=== PATIENT | male | born 1980 | race American Indian/Alaskan Native ===

== ENCOUNTER 2018-08-11 23:12 | Emergency (ER) | payer OTHER ==
[2018-08-12 00:28] VITALS: BP 113/72
[2018-08-12] MEDS ORDERED: ASPIRIN ONE (17:17)
== END 2018-08-12 02:45 | disposition left against medical advice (07) ==
LOC: ED 23:12
DX: R50.9 Fever, unspecified (principal); Z53.21 Procedure and treatment not carried out due to patient leaving prior to being seen by health care provider

== ENCOUNTER 2018-08-12 10:35 | Inpatient (IN) | payer OTHER ==
[2018-08-12] MEDS ORDERED: NACL 0.9% 1000 ML 1,000 ML IV ONE (11:23)
[2018-08-12] MEDS ORDERED: LEVAQUIN 750MG/150ML 750 MG/150 ML BAG IV ONE (11:40)
[2018-08-12 11:48] LABS: Basophils % (Auto) 0.2 % (0.0-1.8); Eosinophils % (Auto) 0.1 % (0.0-4.3); Hemoglobin 14.8 gm/dl (11.8-15.2); Lymphocytes # (Auto) 0.6 K/mm3 (1.2-5.4); Lymphocytes % (Auto) 6.8 % (13.4-35.0); Mean Corpuscular HGB Conc 35 % (32-34); Mean Corpuscular Volume 86 fl (84-94); Monocytes # (Auto) 0.6 K/mm3 (0.0-0.8); Monocytes % (Auto) 7.6 % (0.0-7.3); Platelet Count 152 K/mm3 (140-440); Red Blood Count 4.87 M/mm3 (3.65-5.03); Red Cell Distribution Width 12.8 % (13.2-15.2)
[2018-08-12 12:00] LABS: INR 1.04 (0.87-1.13)
[2018-08-12 12:01] LABS: Partial Thromboplastin Time 24.2 Sec. (24.2-36.6)
[2018-08-12 12:09] LABS: Alanine Aminotransferase 17 units/L (7-56); Albumin 4.1 g/dL (3.9-5); BUN/Creatinine Ratio 14; Blood Urea Nitrogen 15 mg/dL (9-20); Calcium 9.2 mg/dL (8.4-10.2); Hemolysis Index 18
[2018-08-12 12:27] LABS: Creatine Kinase MB < 1.0 ng/mL (0.0-4.0)
--- NOTE | 2018-08-12 12:32 | XRay Report ---
AP CHEST : 08/12/18 10:35:00 CLINICAL: Chest pain and fever. COMPARISON:None FINDINGS: Normal heart and pulmonary vessels. The lungs are normally expanded and clear. The bones and soft tissues are unremarkable. IMPRESSION: Normal chest.
--- NOTE | 2018-08-12 13:31 | History and Physical Report ---
History of Present Illness Chief complaint: My chest hurts, I feel weak. I just dont feel like myself History of present illness: 37 YO Male with PE not taking anticoagulation presents to ED for evaluation. Pt states that he has experienced pain in his chest over the past 3 days with persistent symptoms over the same time frame. Pt states that his pain is substernal, 5/10, worsened with exertion, not relieved with rest, associated with shortness of breath, nonradiating. Pt acknowledges subjective fever, shaking chills, muscle aches, and joint pains, as well as decreased exercise tolerance. Pt transported to [facility] via private vehicle. Pt seen and evaluated in ED and found to have fever to 101.2 , Angina, and other symptoms consistent with Diastolic CHF, and SIRS. Pt admitted to telemetry. Cardiology consulted in ED. Pt denies palpitations, NVD, Trauma, BRBPR, Skin Rash, hematuria, Vertigo, Syncope, productive cough, or recent ill contacts. Past History Past Medical History: pulmonary embolism Past Surgical History: No surgical history Social history: , lives with family. denies: smoking, alcohol abuse, p rescription drug abuse Family history: hypertension Medications and Allergies Allergies Allergy/AdvReac Type Severity Reaction Status Date / Time No Known Allergies Allergy Verified 08/11/18 23:17 Home Medications Medication Instructions Recorded Confirmed Last Taken Type No Known Home Medications [No 08/12/18 08/12/18 Unknown History Reported Home Medications] Review of Systems Constitutional: fever, chills, weakness, malaise, no weight loss, no weight gain Ears, nose, mouth and throat: no ear pain, no ear discharge, no tinnitis, no decreased hearing, no nose pain, no nasal congestion Cardiovascular: chest pain, shortness of breath, dyspnea on exertion, decreased exercise tolerance, no palpitations, no rapid/irregular heart beat, no paroxysmal nocturnal dyspnea, no claudication Respiratory: no cough, no cough with sputum, no excessive sputum, no hemoptysis Gastrointestinal: no nausea, no vomiting, no diarrhea, no constipation, no change in bowel habits Genitourinary Male: no hematuria, no flank pain, no discharge, no urinary frequency, no urinary hesitancy Rectal: no pain, no incontinence, no bleeding Musculoskeletal: no neck stiffness, no neck pain, no shooting arm pain, no arm numbness/tingling, no low back pain Integumentary: no rash, no pruritis, no redness, no sores, no wounds Neurological: no head injury, no transient paralysis, no paralysis, no weakness, no parathesias Psychiatric: no anxiety, no memory loss, no change in sleep habits, no sleep disturbances, no insomnia, no hypersomnia, no change in appetite Endocrine: no cold intolerance, no heat intolerance, no polyphagia, no excessive thirst, no polydipsia, no polyuria Hematologic/Lymphatic: no easy bruising, no easy bleeding, no lymphadenopathy, no lymphedema Allergic/Immunologic: no urticaria, no allergic rhinitis, no wheezing, no persistent infections, no anaphylaxis Exam - Constitutional Vitals: Temp Pulse Resp BP Pulse Ox 101.2 F H 114 H 18 124/73 100 08/12/18 10:53 08/12/18 10:53 08/12/18 10:53 08/12/18 10:53 08/12/18 10:53 General appearance: Present: no acute distress, well-nourished - EENT Eyes: Present: PERRL ENT: hearing intact, clear oral mucosa - Neck Neck: Present: supple, normal ROM - Respiratory Respiratory effort: normal Respiratory: bilateral: CTA - Cardiovascular Heart Sounds: Present: S1 & S2. Absent: rub, click - Extremities Extremities: pulses symmetrical, No edema Peripheral Pulses: within normal limits - Abdominal General gastrointestinal: Present: soft, non-tender, non-distended, normal bowel sounds Male genitourinary: Present: normal - Integumentary Integumentary: Present: clear, warm, dry - Musculoskeletal Musculoskeletal: gait normal, strength equal bilaterally - Psychiatric Psychiatric: appropriate mood/affect, intact judgment & insight - Neurologic Neurologic: CNII-XII intact, moves all extremities Results - Labs CBC & Chem 7: 08/12/18 11:31 08/12/18 11:31 Labs: Abnormal lab results 08/12/18 08/12/18 08/12/18 Range/Units 11:31 11:31 11:54 MCHC 35 H (32-34) % RDW 12.8 L (13.2-15.2) % Lymph % (Auto) 6.8 L (13.4-35.0) % [place] % (Auto) 7.6 H (0.0-7.3) % Lymph # 0.6 L (1.2-5.4) K/mm3 Seg Neutrophils % 85.3 H (40.0-70.0) % Chloride 97.4 L (98-107) mmol/L Glucose 109 H (75-100) mg/dL Magnesium 1.60 L (1.7-2.3) mg/dL Total Bilirubin 1.90 H (0.1-1.2) mg/dL Lipase 11 L (13-60) units/L Assessment and Plan - Patient Problems (1) Angina at rest Current Visit: Yes Status: Acute Plan to address problem: Admit to telemetry, serial cardiac enzymes, ekg, CT Angio chest, cardiology consulted in ED, Stress test, chest x ray, morphine, supplemental oxygen, nitro, aspirin. (2) Diastolic CHF Current Visit: Yes Status: Acute Qualifiers: Heart failure chronicity: acute Qualified Code(s): I50.31 - Acute diastolic (congestive) heart failure Plan to address problem: Admit to telemetry, BNP, strict I/O, daily weight, monitor uop q shift, chest x ray, Ddimer, supplemental oxygen, pulse oximetry, monitor fluid balance, echo (3) SIRS (systemic inflammatory response syndrome) Current Visit: Yes Status: Acute Plan to address problem: CBC, CMP, Chest x ray, Urinalysis, empiric antibiotic therapy, Rapid HIV, ESR, CRP, Rheumatoid Factor, Magnesium level, blood cultures (4) DVT prophylaxis Current Visit: Yes Status: Acute Plan to address problem: SCD to BLE while in bed, prophylactic lovenox
--- NOTE | 2018-08-12 13:34 | Cat Scan Report ---
CTA chest: History: Chest pain history of PE. Findings: No evidence of aneurysm or pulmonary embolism. No mediastinal mass or adenopathy. No pleural pericardial effusion. Unremarkable lung parenchyma. Impression: Essentially negative chest.
[2018-08-12 14:17] LABS: Bacteria,Urine 1+ /HPF (Negative); Bilirubin,Urine NEG (Negative); Blood,Urine NEG (Negative); Color,Urine Yellow (Yellow); Mucus,Urine FEW /HPF
[2018-08-12 14:20] LABS: Amphetamine Screen,Urine PRESUMPTIVE NEGATIVE; Benzodiazepines Screen,Urine PRESUMPTIVE NEGATIVE; Cannabinoid Screen,Urine PRESUMPTIVE NEGATIVE; Cocaine Screen,Urine PRESUMPTIVE NEGATIVE; Methadone Screen,Urine PRESUMPTIVE NEGATIVE; Opiate Screen,Urine PRESUMPTIVE NEGATIVE
[2018-08-12] MEDS ORDERED: MAGNESIUM SULFATE 2GM/50ML 2 GM/50 ML BAG IV ONE ×2 (14:21→16:52)
--- NOTE | 2018-08-12 14:23 | Emergency Department Report ---
ED Chest Pain HPI - General Chief Complaint: Chest Pain Stated Complaint: CHEST PAIN/FEVER/WEAKNESS Time Seen by Provider: 08/12/18 11:22 Source: patient Mode of arrival: Ambulatory Limitations: No Limitations - History of Present Illness Initial Comments: 37-year-old male presents to the emergency department providing a lot of historical information. He is preferring to keep the blanket that he brought from home over his head. However I am able to get some information from him. He states he's had chest pain for 3 days she has constant substernal and a lot of pleuritic. He does complain of some shortness of breath. He states he has not measured his temperature but he has felt like he's had a chill. He presented to the emergency department with fever and tachycardia. In actuality he came on 08/11/2018 which was yesterday and left without physician evaluation. Vital signs yesterday did not show the presence of fever. The patient was pr ocessed as a possible sepsis. However, he told me that in 2010 he was treated with "shots in his abdomen for one year due to a "vitamin K deficiency" and pulmonary embolism. The patient did not report DVT then. He denied recent leg swelling or pain although he has had myalgias and arthralgias diffusely. His have recently traveled. He states that the chest pain is somewhat similar to his previous home in her embolism. He states that he was continued on anticoagulation for one year and that it was discontinued by a physician. Complaint: chest pain -: days(s) Onset: during rest Pain Location: substernal Pain Radiation: none Severity: moderate, severe Quality: aching Consistency: intermittent Improves With: nothing Worsens With: inspiration re: dyspnea Other Symptoms: fever Treatments Prior to Arrival: none Aspirin use within the Past 7 Days: (0) No - Related Data Home Medications Medication Instructions Recorded Confirmed Last Taken No Known Home Medications [No 08/12/18 08/12/18 Unknown Reported Home Medications] Allergies Allergy/AdvReac Type Severity Reaction Status Date / Time No Known Allergies Allergy Verified 08/11/18 23:17 Heart Score - HEART Score History: Moderately suspicious EKG: Non-specific Age: < 45 Risk factors: 1-2 risk factors Troponin: < normal limit HEART Score: 3 - Critical Actions Critical Actions: 0-3 pts:0.9-1.7%risk of adverse cardiac event.Candidate for discharge ED Review of Systems ROS: Stated complaint: CHEST PAIN/FEVER/WEAKNESS Other details as noted in HPI Constitutional: fever. denies: chills Eyes: denies: eye pain, eye discharge, vision change ENT: denies: ear pain, throat pain Respiratory: shortness of breath. denies: cough, wheezing Cardiovascular: chest pain. denies: palpitations Endocrine: no symptoms reported Gastrointestinal: denies: abdominal pain, nausea, diarrhea Genitourinary: denies: urgency, dysuria Musculoskeletal: denies: back pain, joint swelling, arthralgia Skin: denies: rash, lesions Neurological: denies: headache, weakness, paresthesias Psychiatric: denies: anxiety, depression Hematological/Lymphatic: denies: easy bleeding, easy bruising ED Past Medical Hx - Past Medical History Hx Pulmonary Embolism: Yes - Social History Smoking Status: Unknown if ever smoked Substance Use Type: None - Medications Home Medications: Home Medications Medication Instructions Recorded Confirmed Last Taken Type No Known Home Medications [No 08/12/18 08/12/18 Unknown History Reported Home Medications] ED Physical Exam - General Limitations: No Limitations General appearance: alert, in no apparent distress - Head Head exam: Present: atraumatic, normocephalic - Eye Eye exam: Present: normal appearance. Absent: scleral icterus - ENT ENT exam: Present: mucous membranes moist - Neck Neck exam: Present: normal inspection. Absent: tenderness, meningismus - Respiratory Respiratory exam: Present: normal lung sounds bilaterally. Absent: respiratory distress - Cardiovascular Cardiovascular Exam: Present: normal rhythm, tachycardia. Absent: systolic murmur, diastolic murmur, rubs, gallop - GI/Abdominal GI/Abdominal exam: Present: soft, normal bowel sounds. Absent: distended, tenderness, guarding, rebound, rigid - Rectal Rectal exam: Present: deferred - Extremities Exam Extremities exam: Present: normal inspection. Absent: pedal edema, calf tender ness - Back Exam Back exam: Present: normal inspection - Neurological Exam Neurological exam: Present: alert, oriented X3, CN II-XII intact. Absent: motor sensory deficit - Psychiatric Psychiatric exam: Present: anxious, flat affect - Skin Skin exam: Present: warm, dry, intact, normal color. Absent: rash ED Course Vital Signs 08/12/18 10:53 Temperature 101.2 F H Pulse Rate 114 H Respiratory 18 Rate Blood Pressure 124/73 O2 Sat by Pulse 100 Oximetry - Reevaluation(s) Reevaluation #1: Chest x-ray raised a was question of a slight infiltrate on the right to the. This was not borne out on pulmonary angiography which was read as a normal chest by the radiologist. There was no pulmonary embolism. Patient was given 1 dose of Levaquin. Blood cultures were obtained. He was given IV fluids. He was improved on reevaluation. He was referred to the hospitalist service for further care and evaluation. 08/12/18 15:43 JANET score - Janet Score Age > 65: (0) No Aspirin use within the Past 7 Days: (0) No 3 or more CAD Risk Factors: (0) No 2 or more Angina events in past 24 hrs: (0) No Known CAD with more than 50% Stenosis: (0) No Elevated Cardiac Markers: (0) No ST Deviation Greater than 0.5mm: (0) No JANET Score: 0 ED Medical Decision Making - Lab Data Result diagrams: 08/12/18 11:31 08/12/18 11:31 Laboratory Results - last 24 hr 08/12/18 08/12/18 08/12/18 11:31 11:31 11:31 WBC 8.3 RBC 4.87 Hgb 14.8 Hct 42.0 MCV 86 MCH 30 MCHC 35 H RDW 12.8 L Plt Count 152 Lymph % (Auto) 6.8 L [place] % (Auto) 7.6 H Eos % (Auto) 0.1 Baso % (Auto) 0.2 Lymph # 0.6 L [place] # 0.6 Eos # 0.0 Baso # 0.0 Seg Neutrophils % 85.3 H Seg Neutrophils # 7.1 PT 14.2 INR 1.04 APTT 24.2 Sodium 139 Potassium 4.2 Chloride 97.4 L Carbon Dioxide 24 Anion Gap 22 BUN 15 Creatinine 1.1 Estimated GFR > 60 BUN/Creatinine Ratio 14 Glucose 109 H POC Glucose Lactic Acid Calcium 9.2 Magnesium Total Bilirubin 1.90 H AST 18 ALT 17 Alkaline Phosphatase 42 Total Creatine Kinase 85 CK-MB (CK-2) Troponin T < 0.010 NT-Pro-B Natriuret Pep Total Protein 7.7 Albumin 4.1 Albumin/Globulin Ratio 1.1 Lipase 11 L Urine Color Urine Turbidity Urine pH Ur Specific [place] Urine Protein Urine Glucose (UA) Urine Ketones Urine Blood Urine Nitrite Urine Bilirubin Urine Urobilinogen Ur Leukocyte Esterase Urine WBC (Auto) Urine RBC (Auto) Urine Bacteria (Auto) Urine Mucus Urine Opiates Screen Urine Methadone Screen Ur Barbiturates Screen Ur Phencyclidine Scrn Ur Amphetamines Screen U Benzodiazepines Scrn Urine Cocaine Screen U Marijuana (THC) Screen 08/12/18 08/12/18 08/12/18 11:31 11:35 11:54 WBC RBC Hgb Hct MCV MCH MCHC RDW Plt Count Lymph % (Auto) [place] % (Auto) Eos % (Auto) Baso % (Auto) Lymph # [place] # Eos # Baso # Seg Neutrophils % Seg Neutrophils # PT INR APTT Sodium Potassium Chloride Carbon Dioxide Anion Gap BUN Creatinine Estimated GFR BUN/Creatinine Ratio Glucose POC Glucose 84 Lactic Acid 1.30 Calcium Magnesium 1.60 L Total Bilirubin AST ALT Alkaline Phosphatase Total Creatine Kinase TNR CK-MB (CK-2) < 1.0 Troponin T NT-Pro-B Natriuret Pep 252.3 Total Protein Albumin Albumin/Globulin Ratio Lipase Urine Color Urine Turbidity Urine pH Ur Specific [place] Urine Protein Urine Glucose (UA) Urine Ketones Urine Blood Urine Nitrite Urine Bilirubin Urine Urobilinogen Ur Leukocyte Esterase Urine WBC (Auto) Urine RBC (Auto) Urine Bacteria (Auto) Urine Mucus Urine Opiates Screen Urine Methadone Screen Ur Barbiturates Screen Ur Phencyclidine Scrn Ur Amphetamines Screen U Benzodiazepines Scrn Urine Cocaine Screen U Marijuana (THC) Screen 08/12/18 08/12/18 13:44 13:55 WBC RBC Hgb Hct MCV MCH MCHC RDW Plt Count Lymph % (Auto) [place] % (Auto) Eos % (Auto) Baso % (Auto) Lymph # [place] # Eos # Baso # Seg Neutrophils % Seg Neutrophils # PT INR APTT Sodium Potassium Chloride Carbon Dioxide Anion Gap BUN Creatinine Estimated GFR BUN/Creatinine Ratio Glucose POC Glucose Lactic Acid Calcium Magnesium Total Bilirubin AST ALT Alkaline Phosphatase Total Creatine Kinase CK-MB (CK-2) Troponin T NT-Pro-B Natriuret Pep Total Protein Albumin Albumin/Globulin Ratio Lipase Urine Color Yellow Urine Turbidity Clear Urine pH 9.0 H Ur Specific [place] 1.014 Urine Protein 30 mg/dl Urine Glucose (UA) Neg Urine Ketones Neg Urine Blood Neg Urine Nitrite Neg Urine Bilirubin Neg Urine Urobilinogen 2.0 Ur Leukocyte Esterase Tr Urine WBC (Auto) 8.0 H Urine RBC (Auto) 2.0 Urine Bacteria (Auto) 1+ Urine Mucus Few Urine Opiates Screen Presumptive negative Urine Methadone Screen Presumptive negative Ur Barbiturates Screen Presumptive negative Ur Phencyclidine Scrn Presumptive negative Ur Amphetamines Screen Presumptive negative U Benzodiazepines Scrn Presumptive negative Urine Cocaine Screen Presumptive negative U Marijuana (THC) Screen Presumptive negative - EKG Data -: EKG Interpreted by Me EKG shows normal: sinus rhythm, axis, intervals, QRS complexes, ST-T waves (very minimal ST depression in the inferior leads) Rate: tachycardia - Radiology Data Radiology results: report reviewed (negative per radiologist) Critical care attestation.: If time is entered above; I have spent that time in minutes in the direct care of this critically ill patient, excluding procedure time. ED Disposition Clinical Impression: SIRS (systemic inflammatory response syndrome) Chest pain Qualifiers: Chest pain type: unspecified Qualified Code(s): R07.9 - Chest pain, unspecified Disposition: DC-09 OP ADMIT IP TO THIS HOSP Is pt being admited?: Yes Does the pt Need Aspirin: Yes Condition: Stable Instructions: Chest Pain (ED) Time of Disposition: 15:45
[2018-08-12] MEDS ORDERED: MORPHINE IV PRN (14:24)
[2018-08-12] MEDS ORDERED: PROVENTIL IH PRN (14:24)
[2018-08-12] MEDS ORDERED: ZOFRAN IV PRN (14:24)
[2018-08-12] MEDS ORDERED: SODIUM CHLORIDE FLUSH SYRINGE 10 ML IV PRN ×2 (14:24)
[2018-08-12 15:37] LABS: Chol/HDL Ratio 2.51 %
[2018-08-12] MEDS ORDERED: ASPIRIN PO ONE (15:48)
[2018-08-12 17:19] LABS: Free T4 (Free Thyroxine) 1.07 ng/dL (0.76-1.46)
[2018-08-12] MEDS: FIORICET PO PRN (21:31)
[2018-08-12] MEDS: LOVENOX SUB-Q SCH (21:31)
[2018-08-12] MEDS: SODIUM CHLORIDE FLUSH SYRINGE 10 ML IV SCH (21:32)
[2018-08-13] MEDS: NACL 0.9% 1000 ML 1,000 ML IV SCH ×2 (01:04→15:01)
[2018-08-13] MEDS: FIORICET PO PRN ×2 (01:16→21:32)
[2018-08-13] MEDS ORDERED: LEXISCAN IV ONE ×2 (09:36)
[2018-08-13] MEDS: ROCEPHIN/NS 1 GM/50 ML 1 GM/50 ML BAG IV SCH (13:11)
[2018-08-13] MEDS: SODIUM CHLORIDE FLUSH SYRINGE 10 ML IV SCH ×2 (13:12→21:28)
--- NOTE | 2018-08-13 14:16 | Consultation ---
History of Present Illness Consult date: 08/13/18 Consult reason: chest pain History of present illness: Patient is a 37-year-old man who presented to the hospital with chest pain. He describes poorly characterized nonexertional chest pain which he describes as ongoing for 3-4 days. He presented a day earlier to our emergency room, ultimately left without being seen, only to return the next day. On his return to the emergency room, he was also noted with a fever of 101. After a rule out [place] protocol, he was recommended for a stress test and cardiology consultation by the medical service. Despite several days of reported chest pain, the ECG was a mild sinus tachycardia, otherwise normal ECG with no ischemic ST or T-wave abnormalities. Cardiac isoenzymes were negative. The patient was unable to exercise on the treadmill due to his complaints of fever and chills and some low back pain. A Lexiscan thallium stress test done was normal. Past History Past Medical History: pulmonary embolism Past Surgical History: No surgical history Social history: , lives with family. denies: smoking, alcohol abuse, prescription drug abuse Family history: hypertension Medications and Allergies Allergies Allergy/AdvReac Type Severity Reaction Status Date / Time No Known Allergies Allergy Verified 08/11/18 23:17 Home Medications Medication Instructions Recorded Confirmed Last Taken Type No Known Home Medications [No 08/12/18 08/12/18 Unknown History Reported Home Medications] Active Meds: Active Medications Acetaminophen (Tylenol) 650 mg PO Q4H PRN PRN Reason: Pain MILD(1-3)/Fever >100.5/PEREZ Acetaminophen/Butalbital/Caffeine (Fioricet) 1 tab PO Q4H PRN PRN Reason: Headache Last Admin: 08/13/18 01:16 Dose: 1 tab Documented by: Albuterol (Proventil) 2.5 mg IH Q4HRT PRN PRN Reason: Shortness Of Breath Enoxaparin Sodium (Lovenox) 40 mg SUB-Q QDAY@2200 JONY Last Admin: 08/12/18 21:31 Dose: 40 mg Documented by: Ceftriaxone Sodium (Rocephin/Ns 1 Gm/50 Ml) 1 gm in 50 mls @ 100 mls/hr IV Q24HR JONY; Protocol Stop: 08/15/18 23:59 Last Admin: 08/13/18 13:11 Dose: 100 mls/hr Documented by: Sodium Chloride (Nacl 0.9% 1000 Ml) 1,000 mls @ 100 mls/hr IV DIRECT [facility] Last Admin: 08/13/18 01:04 Dose: 100 mls/hr Documented by: Morphine Sulfate (Morphine) 2 mg IV Q4H PRN PRN Reason: Pain, Moderate (4-6) Last Admin: 08/13/18 13:10 Dose: 2 mg Documented by: Ondansetron HCl (Zofran) 4 mg IV Q8H PRN PRN Reason: Nausea And Vomiting Sodium Chloride (Sodium Chloride Flush Syringe 10 Ml) 10 ml IV BID [facility] Last Admin: 08/13/18 13:12 Dose: 10 ml Documented by: Sodium Chloride (Sodium Chloride Flush Syringe 10 Ml) 10 ml IV PRN PRN PRN Reason: LINE FLUSH Review of Systems Cardiovascular: chest pain, no orthopnea, no palpitations, no rapid/irregular heart beat, no edema, no syncope, no lightheadedness, no shortness of breath Physical Examination Vital Signs Temp Pulse Resp BP Pulse Ox 101.2 F H 114 H 18 124/73 100 08/12/18 10:53 08/12/18 10:53 08/12/18 10:53 08/12/18 10:53 08/12/18 10:53 General appearance: no acute distress HEENT: Positive: PERRL Neck: Positive: neck supple Cardiac: Positive: Reg Rate and Rhythm Lungs: Positive: clear to auscultation Neuro: Positive: Grossly Intact Abdomen: Positive: Soft Male genitourinary: Positive: deferred Skin: Positive: Clear Extremities: Absent: edema Results 08/12/18 11:31 08/12/18 11:31 Lipids 08/12/18 Range/Units 14:24 Triglycerides 65 (2-149) mg/dL Cholesterol 141 (50-199) mg/dL HDL Cholesterol 56 (40-59) mg/dL Cholesterol/HDL Ratio 2.51 % EKG interpretations - Telemetry EKG Rhythm: Sinus Tachycardia Assessment and Plan - Patient Problems (1) Fever Current Visit: Yes Status: Acute Plan to address problem: The acute febrile illness appears to the patient's major complaint at this time, we'll defer to internal medicine and infectious disease for further workup and management. (2) Chest pain Current Visit: Yes Status: Acute Qualifiers: Chest pain type: unspecified Qualified Code(s): R07.9 - Chest pain, unspecified Plan to address problem: Chest pain is atypical, ECG is benign, negative Lexiscan thallium stress test, no further cardiac workup is indicated. We'll sign off.
[2018-08-13] MEDS ORDERED: MAGNESIUM SULFATE 1 GM in NACL 0.9% 50 ML IV ONE (16:00)
--- NOTE | 2018-08-13 16:26 | Progress Note ---
Assessment and Plan Assessment and plan: 37 YO Male with history of PE not taking anticoagulatio a few years ago now presenting to the ED for evaluation of chest pain and had headaches bilateral retro-orbital pain and bilateral CVA tenderness. Patient was noted to have possible sepsis on admission due to fever etiology was not known temperature was 101.2. Consider his past medical history including noncompliance for pulmonary embolism management recommended for stress test. CT was initially done and was negative. No clinical evidence of meningitis or worse headache of his life on description. Urinalysis showed Some WBC with trace leukoesterase. Patient denies any history of kidney stones. Atypical chest pain likely clinical syndrome of sepsis Sepsis likely secondary to acute cystitis and will rule out pyelonephritis Migraine headache Low back pain Plan Supportive care Pain control T/L umberspine CT rule out abscess Continue empiric antibiotics HIV rapid test negative Patient noted to have elevated RH factor. ?Autoimmune disorder, considering hx of PE, will explore further, no clinical skin changes noted. Continue gentle hydration Stress test done and negative. Cardiology input noted DVT/GI prophy Plan discussed with the patient. History Interval history: Patient seen and examined, complains of headache with photophobia and Phonophobia but no nuchal rigidity and no other meningimus signs, Headache he described as 5/10 and does not describe as the worse headache of his life He also reports Bilatral CVA tenderness but no spinal tenderness. Also reported one episode of painful urination but no gross hematuria Hospitalist Physical - Physical exam Narrative exam: VITAL SIGNS: Reviewed. GENERAL: The patient appeared well nourished and normally developed, Vital signs as documented. HEAD: No signs of head trauma. No meningismus sign and no nuchal rigidity EYES: Pupils are equal. Extraocular motions intact. EARS: Hearing grossly intact. MOUTH: Oropharynx is normal. NECK: No adenopathy, no JVD. CHEST: Chest with clear breath sounds bilaterally. No wheezes, rales, or rhonchi. CARDIAC: Regular rate and rhythm. S1 and S2, without murmurs, gallops, or rubs. VASCULAR: No Edema. Peripheral pulses normal and equal in all extremities. ABDOMEN: Soft, non tender and non distended. No rebound or guarding, and no masses palpated. Bowel Sounds normal. MUSCULOSKELETAL: Positive bilateral CVA tenderness Good range of motion of all major joints. Extremities without clubbing, cyanosis or edema. NEUROLOGIC EXAM: Alert and oriented x 3 No focal sensory or strength deficit s. Speech normal. Follows commands. PSYCHIATRIC: Mood normal. SKIN: No rash or lesions. - Constitutional Vitals: Temp Pulse Resp BP Pulse Ox 98.6 F 64 19 117/76 98 08/13/18 04:06 08/13/18 14:00 08/13/18 10:00 08/13/18 11:33 08/13/18 10:00 General appearance: Present: no acute distress Results - Labs CBC & Chem 7: 08/12/18 11:31 08/12/18 11:31 Labs: Laboratory Last Values WBC 8.3 K/mm3 (4.5-11.0) 08/12/18 11:31 RBC 4.87 M/mm3 (3.65-5.03) 08/12/18 11:31 Hgb 14.8 gm/dl (11.8-15.2) 08/12/18 11:31 Hct 42.0 % (35.5-45.6) 08/12/18 11:31 MCV 86 fl (84-94) 08/12/18 11:31 MCH 30 pg (28-32) 08/12/18 11:31 MCHC 35 % (32-34) H 08/12/18 11:31 RDW 12.8 % (13.2-15.2) L 08/12/18 11:31 Plt Count 152 K/mm3 (140-440) 08/12/18 11:31 Lymph % (Auto) 6.8 % (13.4-35.0) L 08/12/18 11:31 [place] % (Auto) 7.6 % (0.0-7.3) H 08/12/18 11:31 Eos % (Auto) 0.1 % (0.0-4.3) 08/12/18 11:31 Baso % (Auto) 0.2 % (0.0-1.8) 08/12/18 11:31 Lymph # 0.6 K/mm3 (1.2-5.4) L 08/12/18 11:31 [place] # 0.6 K/mm3 (0.0-0.8) 08/12/18 11:31 Eos # 0.0 K/mm3 (0.0-0.4) 08/12/18 11:31 Baso # 0.0 K/mm3 (0.0-0.1) 08/12/18 11:31 Seg Neutrophils % 85.3 % (40.0-70.0) H 08/12/18 11:31 Seg Neutrophils # 7.1 K/mm3 (1.8-7.7) 08/12/18 11:31 ESR 18 mm/Hr (0-20) 08/12/18 16:23 PT 14.2 Sec. (12.2-14.9) 08/12/18 11:31 INR 1.04 (0.87-1.13) 08/12/18 11:31 APTT 24.2 Sec. (24.2-36.6) 08/12/18 11:31 Sodium 139 mmol/L (137-145) 08/12/18 11:31 Potassium 4.2 mmol/L (3.6-5.0) 08/12/18 11:31 Chloride 97.4 mmol/L (98-107) L 08/12/18 11:31 Carbon Dioxide 24 mmol/L (22-30) 08/12/18 11:31 Anion Gap 22 mmol/L 08/12/18 11:31 BUN 15 mg/dL (9-20) 08/12/18 11:31 Creatinine 1.1 mg/dL (0.8-1.5) 08/12/18 11:31 Estimated GFR > 60 ml/min 08/12/18 11:31 BUN/Creatinine Ratio 14 % 08/12/18 11:31 Glucose 109 mg/dL (75-100) H 08/12/18 11:31 POC Glucose 84 (70-105) 08/12/18 11:35 Lactic Acid 1.30 mmol/L (0.7-2.0) 08/12/18 11:31 Calcium 9.2 mg/dL (8.4-10.2) 08/12/18 11:31 Magnesium 1.60 mg/dL (1.7-2.3) L 08/12/18 16:23 Total Bilirubin 1.90 mg/dL (0.1-1.2) H 08/12/18 11:31 AST 18 units/L (5-40) 08/12/18 11:31 ALT 17 units/L (7-56) 08/12/18 11:31 Alkaline Phosphatase 42 units/L (35-129) 08/12/18 11:31 Total Creatine Kinase TNR 08/12/18 11:54 CK-MB (CK-2) < 1.0 ng/mL (0.0-4.0) 08/12/18 11:54 Troponin T < 0.010 ng/mL (0.00-0.029) 08/12/18 20:34 C-Reactive Protein 11.50 mg/dL (0.00-1.30) H 08/12/18 16:23 NT-Pro-B Natriuret Pep 252.3 pg/mL (0-450) 08/12/18 11:54 Total Protein 7.7 g/dL (6.3-8.2) 08/12/18 11:31 Albumin 4.1 g/dL (3.9-5) 08/12/18 11:31 Albumin/Globulin Ratio 1.1 % 08/12/18 11:31 Triglycerides 65 mg/dL (2-149) 08/12/18 14:24 Cholesterol 141 mg/dL (50-199) 08/12/18 14:24 LDL Cholesterol Direct 88 mg/dL (50-130) 08/12/18 14:24 HDL Cholesterol 56 mg/dL (40-59) 08/12/18 14:24 Cholesterol/HDL Ratio 2.51 % 08/12/18 14:24 Lipase 11 units/L (13-60) L 08/12/18 11:31 TSH 0.159 mlU/mL (0.270-4.200) L 08/12/18 16:23 Free T4 1.07 ng/dL (0.76-1.46) 08/12/18 16:23 Urine Color Yellow (Yellow) 08/12/18 13:44 Urine Turbidity Clear (Clear) 08/12/18 13:44 Urine pH 9.0 (5.0-7.0) H 08/12/18 13:44 Ur Specific [place] 1.014 (1.003-1.030) 08/12/18 13:44 Urine Protein 30 mg/dl mg/dL (Negative) 08/12/18 13:44 Urine Glucose (UA) Neg mg/dL (Negative) 08/12/18 13:44 Urine Ketones Neg mg/dL (Negative) 08/12/18 13:44 Urine Blood Neg (Negative) 08/12/18 13:44 Urine Nitrite Neg (Negative) 08/12/18 13:44 Urine Bilirubin Neg (Negative) 08/12/18 13:44 Urine Urobilinogen 2.0 mg/dL (<2.0) 08/12/18 13:44 Ur Leukocyte Esterase Tr (Negative) 08/12/18 13:44 Urine WBC (Auto) 8.0 /HPF (0.0-6.0) H 08/12/18 13:44 Urine RBC (Auto) 2.0 /HPF (0.0-6.0) 08/12/18 13:44 Urine Bacteria (Auto) 1+ /HPF (Negative) 08/12/18 13:44 Urine Mucus Few /HPF 08/12/18 13:44 Urine Opiates Screen Presumptive negative 08/12/18 13:55 Urine Methadone Screen Presumptive negative 08/12/18 13:55 Ur Barbiturates Screen Presumptive negative 08/12/18 13:55 Ur Phencyclidine Scrn Presumptive negative 08/12/18 13:55 Ur Amphetamines Screen Presumptive negative 08/12/18 13:55 U Benzodiazepines Scrn Presumptive negative 08/12/18 13:55 Urine Cocaine Screen Presumptive negative 08/12/18 13:55 U Marijuana (THC) Screen Presumptive negative 08/12/18 13:55 Drugs of Abuse Note Disclamer 08/12/18 13:55 Rheumatoid Factor 17 IU/ml (0-13) H 08/12/18 16:23 HIV 1&2 Antibody Rapid Non react (Non React) 08/12/18 11:54 HIV P24 Antigen Non react (Non React) 08/12/18 11:54 Active Medications - Current Medications Current Medications: Generic Name Dose Route Start Last Admin Trade Name Freq PRN Reason Stop Dose Admin Acetaminophen 650 mg 08/12/18 14:24 Tylenol PO Q4H PRN Pain MILD(1-3)/Fever >100.5/PEREZ Acetaminophen/Butalbital/Caffeine 1 tab 08/12/18 21:08 08/13/18 01:16 Fioricet PO 1 tab Q4H PRN Administration Headache Albuterol 2.5 mg 08/12/18 14:24 Proventil IH Q4HRT PRN Shortness Of Breath Enoxaparin Sodium 40 mg 08/12/18 22:00 08/12/18 21:31 Lovenox SUB-Q 40 mg QDAY@2200 JONY Administration Ceftriaxone Sodium 1 gm in 50 mls @ 100 mls/hr 08/13/18 10:00 08/13/18 13:11 Rocephin/Ns 1 Gm/50 Ml IV 08/15/18 23:59 100 mls/hr Q24HR JONY Administration Protocol Sodium Chloride 1,000 mls @ 100 mls/hr 08/13/18 01:00 08/13/18 15:01 Nacl 0.9% 1000 Ml IV 100 mls/hr DIRECT JONY Administration Magnesium Sulfate 1 gm/ Sodium 52 mls @ 52 mls/hr 08/13/18 16:00 Chloride IV 08/13/18 16:59 ONCE ONE Morphine Sulfate 2 mg 08/12/18 14:24 08/13/18 13:10 Morphine IV 2 mg Q4H PRN Administration Pain, Moderate (4-6) Ondansetron HCl 4 mg 08/12/18 14:24 Zofran IV Q8H PRN Nausea And Vomiting Sodium Chloride 10 ml 08/12/18 22:00 08/13/18 13:12 Sodium Chloride Flush Syringe 10 Ml IV 10 ml BID JONY Administration Sodium Chloride 10 ml 08/12/18 14:24 Sodium Chloride Flush Syringe 10 Ml IV PRN PRN LINE FLUSH
[2018-08-13] MEDS: TYLENOL PO PRN (16:32)
[2018-08-13 17:14] LABS: Bilirubin,Urine NEG (Negative); Blood,Urine NEG (Negative); Color,Urine Yellow (Yellow); Mucus,Urine FEW /HPF; Protein,Urine <15 mg/dL mg/dL (Negative)
--- NOTE | 2018-08-13 17:53 | Cat Scan Report ---
PROCEDURE: CT THORACIC SPINE WO CON TECHNIQUE: Axial noncontrast images were performed of the thoracic and lumbar spine. Multiplanar ref ormats were performed on the acquisition scanner. Total exam DLP for the thoracic spine is 907.08 mgy-centimeter and for the lumbosacral spine is 499.4 7 mGy-centimeters HISTORY: back pain severe COMPARISONS: CTA chest 08/12/2018 FINDINGS: Sagittal and coronal reconstructed images of the thoracic and lumbosacral spine were performed. Vertebral body heights are maintained. Normal thoracic kyphosis and lumbar lordosis. Normal bony mine ralization. No degenerative change or disc space narrowing of either thoracic or lumbar spine. There is upper thoracic interspinous hypertrophy of T2, T3, T4. No significant scoliosis. Imaged lungs demonstrate an area of air trapping in the central superior segment left lower lobe and calcified left hilar lymph nodes. Axial images show no bony canal stenosis or significant bony foraminal encroachment. No rib fractures . In the lumbar spine, there is right greater than left SI joint partial ankylosis. No significant jennifer l or foraminal stenosis. IMPRESSION: No etiology for back pain identified. No focal lytic or blastic lesion. No significant degenerative change. There is upper thoracic interspinous hypertrophy. There is a focus of air trapping in the superior segment left lower lobe of the lung unchanged from y CTA chest. This document is electronically signed by Nafisa Garcia MD., August 13 2018 05:52:06 PM ET
--- NOTE | 2018-08-13 17:58 | Cat Scan Report ---
PROCEDURE: CT LUMBAR SPINE WO CON TECHNIQUE: Axial noncontrast images were performed of the thoracic and lumbar spine. Multiplanar refo rmats were performed on the acquisition scanner. Total exam DLP for the thoracic spine is 907.08 mgy -centimeter and for the lumbosacral spine is 499.47 mGy-centimeters HISTORY: back pain severe, headache and dizziness COMPARISONS: CTA chest 08/12/2018 FINDINGS: Sagittal and coronal reconstructed images of the thoracic and lumbosacral spine were perfo rmed. Vertebral body heights are maintained. Normal thoracic kyphosis and lumbar lordosis. Normal bony mineralization. No degenerative change or disc space narrowing of either thoracic or lumbar spine. There is upper thoracic interspinous hypertrophy of T2, T3, T4. No significant scoliosis. Imaged lungs demonstrate an area of air trapping in the central superior segment left lower lobe and calcified left hilar lymph nodes. Axial images show no bony canal stenosis or significant bony foraminal encroachment. No rib fractures . In the lumbar spine, there is right greater than left SI joint partial ankylosis. No significant jennifer l or foraminal stenosis. IMPRESSION: No etiology for back pain identified. No focal lytic or blastic lesion. No significant degenerative change. There is upper thoracic inters pinous hypertrophy. There is a focus of air trapping in the superior segment left lower lobe of the lung unchanged from y CTA chest. This document is electronically signed by Nafisa Garcia MD., August 13 2018 05:56:21 PM ET
--- NOTE | 2018-08-13 18:00 | Cat Scan Report ---
PROCEDURE: CT HEAD/BRAIN WO CON TECHNIQUE: CT head without contrast HISTORY: headache with dizziness COMPARISONS: FINDINGS: No acute intra or extra-axial hemorrhage identified. No evidence for midline shift or mass effect. Ve ntricles and sulci are within normal limits. Velasco-white matter differentiation is intact. Bony calvarium is intact. Visualized portions of the paranasal sinuses and mastoids are unremarkable. IMPRESSION: Negative CT head. This document is electronically signed by Dragan Lehman MD., August 13 2018 05:58:30 PM ET
[2018-08-13] MEDS: LOVENOX SUB-Q SCH (21:16)
--- NOTE | 2018-08-14 00:12 | Treadmill Report ---
THALLIUM STRESS TEST LEFT VENTRICLE: Left ventricular chamber size is within normal spread. Perfusion study demonstrates homogeneous uptake of the tracer in all segments, no significant defects identified. Gated analysis demonstrates normal left ventricular systolic function, ejection fraction 62%. CONCLUSION: Normal myocardial perfusion study. JOB# [id number] CA/NTS
[2018-08-14] MEDS: NACL 0.9% 1000 ML 1,000 ML IV SCH (03:48)
[2018-08-14] MEDS: TYLENOL PO PRN (04:02)
[2018-08-14 06:00] LABS: Hematocrit 39.4 % (35.5-45.6); Hemoglobin 13.7 gm/dl (11.8-15.2); Mean Corpuscular HGB Conc 35 % (32-34); Mean Corpuscular Volume 87 fl (84-94); Platelet Count 138 K/mm3 (140-440); Red Blood Count 4.55 M/mm3 (3.65-5.03); Red Cell Distribution Width 12.5 % (13.2-15.2)
[2018-08-14 06:29] LABS: BUN/Creatinine Ratio 9; Blood Urea Nitrogen 10 mg/dL (9-20); Calcium 8.2 mg/dL (8.4-10.2); Hemolysis Index 6
[2018-08-14] MEDS ORDERED: IBUPROFEN PO PRN (07:56)
--- NOTE | 2018-08-14 09:17 | Consultation ---
History of Present Illness - Reason for Consult Consult date: 08/14/18 Sepsis vs Autoimmune disorder Requesting physician: JUDAH ASHRAF - History of Present Illness This patient is a 37 year old male with a past medcial history of Hypertension and Pulmonary embolism not taking anticoagulation, he initially presented to the ED on 08/11/18 with possible sepsis, He returned 08/12/18 with complaints of chest pain for the last 3 days and SOB. Upon further evaluation, patient reported that in 2010 he was treated with shots in his abdomen for one year due to a "vitamin K deficiency" and pulmonary embolism. Patient also acknowledges roy bjective fever, shaking chills, muscle aches and joint pains. On admission WBC 8.3, Creatinine 1.1, CRP 11.50, ESR 18, Temperature 101.2, HR 114, BP 124/73, U/A was not consistent with a UTI, HIV was nonreactive, RF 17. Blood cultures were drawn and isolate grew GNR 1 out of 4 bottles. Chest CTA was unremarkable.. Review of Systems: General: no fever, chills, nightsweats, unintentional weight change, or change in appetite Cutaneous: no rash, pruritus Head: + headache, reports no injury Eyes: no changes in vision, eye pain, double vision Ears: no ear pain, ear discharge, ringing or hearing loss Nose: no nose bleeding, stuffiness Mouth & throat: no bleeding gums, no horseness, no dental problems, or swollen glands Neck: no pain, node enlargement/lumps, tyroid enlargement or tenderness Respiratory: no cough, wheezing, sputum, hemoptysis, pleuritic chest pain Cardiovascular: no chest pain, leg edema, cyanosis, FERNANDES, orthopnea Musculoskeletal: no decreased joint motion, + lower extremity joint and muscle pain Gastrointestinal: no nausea, vomiting, hematemesis, diarrhea, constipation Genitourinary/Reproductive: no frequent urination, no dysuria, hematuria, incontinence Neurogical: no seizures, no headaches, no weakness, no paresthesias, no loss of speech or vision; no memory loss, no vertigo, no tremors, no numbness Psychiatric: stable mood; no excessive anxiety, sadness or moodiness Past History Past Medical History: pulmonary embolism Past Surgical History: No surgical history Social history: , lives with family. denies: smoking, alcohol abuse, prescription drug abuse Family history: hypertension Medications and Allergies Allergies Allergy/AdvReac Type Severity Reaction Status Date / Time No Known Allergies Allergy Verified 08/11/18 23:17 Home Medications Medication Instructions Recorded Confirmed Last Taken Type No Known Home Medications [No 08/12/18 08/12/18 Unknown History Reported Home Medications] Active Meds: Active Medications Acetaminophen (Tylenol) 650 mg PO Q4H PRN PRN Reason: Pain MILD(1-3)/Fever >100.5/PEREZ Last Admin: 08/14/18 04:02 Dose: 650 mg Documented by: Acetaminophen/Butalbital/Caffeine (Fioricet) 1 tab PO Q4H PRN PRN Reason: Headache Last Admin: 08/13/18 21:32 Dose: 1 tab Documented by: Albuterol (Proventil) 2.5 mg IH Q4HRT PRN PRN Reason: Shortness Of Breath Enoxaparin Sodium (Lovenox) 40 mg SUB-Q QDAY@2200 JONY Last Admin: 08/13/18 21:16 Dose: 40 mg Documented by: Ceftriaxone Sodium (Rocephin/Ns 1 Gm/50 Ml) 1 gm in 50 mls @ 100 mls/hr IV Q24HR JONY; Protocol Stop: 08/15/18 23:59 Last Admin: 08/13/18 13:11 Dose: 100 mls/hr Documented by: Sodium Chloride (Nacl 0.9% 1000 Ml) 1,000 mls @ 100 mls/hr IV DIRECT JONY Last Admin: 08/14/18 03:48 Dose: 100 mls/hr Documented by: Ibuprofen (Motrin) 600 mg PO Q8H PRN PRN Reason: Pain, Mild (1-3) Morphine Sulfate (Morphine) 2 mg IV Q4H PRN PRN Reason: Pain, Moderate (4-6) Last Admin: 08/13/18 13:10 Dose: 2 mg Documented by: Ondansetron HCl (Zofran) 4 mg IV Q8H PRN PRN Reason: Nausea And Vomiting Sodium Chloride (Sodium Chloride Flush Syringe 10 Ml) 10 ml IV BID [facility] Last Admin: 08/13/18 21:28 Dose: Not Given Documented by: Sodium Chloride (Sodium Chloride Flush Syringe 10 Ml) 10 ml IV PRN PRN PRN Reason: LINE FLUSH Physical Examination - Physical Exam Narrative exam: Constitutional: Alert, cooperative. Mild distress observed Head, Ears, Nose: Normocephalic, atraumatic. External ears, nose normal Eyes: Conjunctivae/corneas clear. No icterus. No ptosis. Neck: Supple, no meningeal signs Oral: dentition fair, no thrush Cardiovascular: S1, S2 normal. Respiratory: Good air entry, clear to auscultation bilaterally GI: Soft, non-tender; bowel sounds normal. No peritoneal signs Musculoskeletal: + lower extremity muscle and joint pain, + lower back pain Skin: No rash or abscess Hem/Lymphatic: No palpable cervical or supraclavicular nodes. No lymphangitis Psych: Mood ok. Affect normal Neurological: Awake, alert, oriented. - Constitutional Vitals: Vital Signs Temp Pulse Resp BP Pulse Ox 98.2 F 73 18 109/81 100 08/14/18 08:19 08/14/18 08:19 08/14/18 08:19 08/14/18 08:19 08/14/18 08:19 Temperature -Last 24 Hours Temperature 98.2 F Temperature 102.6 F Temperature 100.5 F Temperature 98.9 F Results - Labs CBC & Chem 7: 08/14/18 05:24 08/14/18 05:24 Labs: Abnormal lab results 08/14/18 08/14/18 Range/Units 05:24 05:24 WBC 3.8 L (4.5-11.0) K/mm3 MCHC 35 H (32-34) % RDW 12.5 L (13.2-15.2) % Plt Count 138 L (140-440) K/mm3 Glucose 111 H (75-100) mg/dL Calcium 8.2 L (8.4-10.2) mg/dL - Imaging and Cardiology Chest x-ray: report reviewed (No consolidation) CT scan - chest: report reviewed ( No evidence of aneurysm or pulmonary embolism. No mediastinal mass or adenopathy. No pleural pericardial effusion. Unremarkable lung parenchyma) Assessment and Plan Cultures: 08/12/18 Blood GNR, 1 out 4 bottles 08/12/18 Urine GNR , 10-100K CFu ml A/P 37 year old male with a past medical history of Hypertension and Pulmonary embolism not taking anticoagulation, he initially presented to the ED on 08/11/18 with possible sepsis, he returned 08/12/18 with complaints of chest pain fo r the last 3 days and SOB. Upon further evaluation, patient reported that in 2010 he was treated with shots in his abdomen for one year due to a "vitamin K deficiency" and pulmonary embolism. Patient also acknowledges subjective fever, shaking chills, muscle aches and joint pains. Admitted with: 1. SIRS present on admission: evidenced by fever and tachycardia. etiology unclear, multifactorial- Blood cultures grew GNR 1 out of 4 bottles, urine culture grew GNR. , Chest Xray showed no consolidation. No leukocytosis, however now leukopenic. HIV nonreactive.. Autoimmune? C/O joint and muscle pain., Rheumatoid factor high at 17. Currently being treated with ceftriaxone. CRP 11.50, ESR 18. 2. Gram Negative Vito Bacteremia: 1 out of 4 bottles. F/u blood cultures. 3. UTI: Initial U/A with mild Pyuria, WBC 8.0, trace LE, repeat U/A negative. Urine culture grew GNR. Given UTI in a male patient, recommend CT abdomen pelvis with IV contrast for additional eval of the urinary system. 4. Autoimmune disorder?: complains of joint pain and muscle pain, RH factor high at 17. DDX RA, Lupus. 5. History of PE: Took Warfarin [id number]. Not currently on anticoagulants. . Plan - Dr. Rudd called and discussed with microbiology lab on the phone. Both blood isolate and urinary isolate are non-lactose fermenters and appear similar, likely Proteus, hence likely source is UTI - continue ceftriaxone , dose adjusted to 2gm IV q24 hrs - given UTI in a male patient, recommend CT abdomen pelvis with IV contrast for additional eval of the urinary system -f/u blood culture d/w Dr. Tobin Rudd will be [employer] consultant this weekend, . Please call for questions [facility] M: [phone] O:[phone]
[2018-08-14] MEDS: ROCEPHIN/NS 1 GM/50 ML 1 GM/50 ML BAG IV SCH (10:22)
[2018-08-14] MEDS: SODIUM CHLORIDE FLUSH SYRINGE 10 ML IV SCH ×2 (10:22→21:03)
[2018-08-14] MEDS ORDERED: ROCEPHIN/NS 1 GM/50 ML 1 GM/50 ML BAG IV ONE (16:00)
--- NOTE | 2018-08-14 16:08 | Progress Note ---
Assessment and Plan Assessment and plan: 37 YO Male with history of PE not taking anticoagulatio a few years ago now presenting to the ED for evaluation of chest pain and had headaches bilateral retro-orbital pain and bilateral CVA tenderness. Patient was noted to have possible sepsis on admission due to fever etiology was not known temperature was 101.2. Consider his past medical history including noncompliance for pulmonary embolism management recommended for stress test. CT was initially done and was negative. No clinical evidence of meningitis or worse headache of his life on description. Urinalysis showed Some WBC with trace leukoesterase. Patient denies any history of kidney stones. Atypical chest pain likely clinical syndrome of sepsis Sepsis likely secondary to acute cystitis and will rule out pyelonephritis- GNR Migraine headache Low back pain Plan Supportive care Pain control ID consulted. Awaiting Serology oreded to evaluate for autoimmune disease T/L umberspine CT rule out abscess Continue empiric antibiotics HIV rapid test negative Patient noted to have elevated RH factor. ?Autoimmune disorder, considering hx of PE, will explore further, no clinical skin changes noted. Continue gentle hydration Stress test done and negative. Cardiology input noted DVT/GI prophy Plan discussed with the patient. History Interval history: Patient seen and examined, still complains of headache with photophobia and Phonophobia but no nuchal rigidity and no other meningimus signs, Headache he described as 3/10 and does not describe as the worse headache of his life Back pain improving, reports some gum disease. Hospitalist Physical - Physical exam Narrative exam: VITAL SIGNS: Reviewed. GENERAL: The patient appeared well nourished and normally developed, Vital signs as documented. HEAD: No signs of head trauma. No meningismus sign and no nuchal rigidity EYES: Pupils are equal. Extraocular motions intact. EARS: Hearing grossly intact. MOUTH: Oropharynx is normal. NECK: No adenopathy, no JVD. CHEST: Chest with clear breath sounds bilaterally. No wheezes, rales, or rhonchi. CARDIAC: Regular rate and rhythm. S1 and S2, without murmurs, gallops, or rubs. VASCULAR: No Edema. Peripheral pulses normal and equal in all extremities. ABDOMEN: Soft, non tender and non distended. No rebound or guarding, and no masses palpated. Bowel Sounds normal. MUSCULOSKELETAL: Positive bilateral CVA tenderness Good range of motion of all major joints. Extremities without clubbing, cyanosis or edema. NEUROLOGIC EXAM: Alert and oriented x 3 No focal sensory or strength deficits. Speech normal. Follows commands. PSYCHIATRIC: Mood normal. SKIN: No rash or lesions. - Constitutional Vitals: Temp Pulse Resp BP Pulse Ox 99.2 F 74 20 122/77 98 08/14/18 13:01 08/14/18 13:01 08/14/18 13:01 08/14/18 13:01 08/14/18 13:01 General appearance: Present: no acute distress Results - Labs CBC & Chem 7: 08/14/18 05:24 08/14/18 05:24 Labs: Laboratory Last Values WBC 3.8 K/mm3 (4.5-11.0) L 08/14/18 05:24 RBC 4.55 M/mm3 (3.65-5.03) 08/14/18 05:24 Hgb 13.7 gm/dl (11.8-15.2) 08/14/18 05:24 Hct 39.4 % (35.5-45.6) 08/14/18 05:24 MCV 87 fl (84-94) 08/14/18 05:24 MCH 30 pg (28-32) 08/14/18 05:24 MCHC 35 % (32-34) H 08/14/18 05:24 RDW 12.5 % (13.2-15.2) L 08/14/18 05:24 Plt Count 138 K/mm3 (140-440) L 08/14/18 05:24 Lymph % (Auto) 6.8 % (13.4-35.0) L 08/12/18 11:31 [place] % (Auto) 7.6 % (0.0-7.3) H 08/12/18 11:31 Eos % (Auto) 0.1 % (0.0-4.3) 08/12/18 11:31 Baso % (Auto) 0.2 % (0.0-1.8) 08/12/18 11:31 Lymph # 0.6 K/mm3 (1.2-5.4) L 08/12/18 11:31 [place] # 0.6 K/mm3 (0.0-0.8) 08/12/18 11:31 Eos # 0.0 K/mm3 (0.0-0.4) 08/12/18 11:31 Baso # 0.0 K/mm3 (0.0-0.1) 08/12/18 11:31 Seg Neutrophils % 85.3 % (40.0-70.0) H 08/12/18 11:31 Seg Neutrophils # 7.1 K/mm3 (1.8-7.7) 08/12/18 11:31 ESR 29 mm/Hr (0-20) 08/14/18 08:33 PT 14.2 Sec. (12.2-14.9) 08/12/18 11:31 INR 1.04 (0.87-1.13) 08/12/18 11:31 APTT 24.2 Sec. (24.2-36.6) 08/12/18 11:31 Sodium 137 mmol/L (137-145) 08/14/18 05:24 Potassium 4.1 mmol/L (3.6-5.0) 08/14/18 05:24 Chloride 102.3 mmol/L (98-107) 08/14/18 05:24 Carbon Dioxide 26 mmol/L (22-30) 08/14/18 05:24 Anion Gap 13 mmol/L 08/14/18 05:24 BUN 10 mg/dL (9-20) 08/14/18 05:24 Creatinine 1.1 mg/dL (0.8-1.5) 08/14/18 05:24 Estimated GFR > 60 ml/min 08/14/18 05:24 BUN/Creatinine Ratio 9 % 08/14/18 05:24 Glucose 111 mg/dL (75-100) H 08/14/18 05:24 POC Glucose 84 (70-105) 08/12/18 11:35 Lactic Acid 1.30 mmol/L (0.7-2.0) 08/12/18 11:31 Calcium 8.2 mg/dL (8.4-10.2) L 08/14/18 05:24 Magnesium 1.80 mg/dL (1.7-2.3) 08/13/18 16:07 Total Bilirubin 1.90 mg/dL (0.1-1.2) H 08/12/18 11:31 AST 18 units/L (5-40) 08/12/18 11:31 ALT 17 units/L (7-56) 08/12/18 11:31 Alkaline Phosphatase 42 units/L (35-129) 08/12/18 11:31 Total Creatine Kinase TNR 08/12/18 11:54 CK-MB (CK-2) < 1.0 ng/mL (0.0-4.0) 08/12/18 11:54 Troponin T < 0.010 ng/mL (0.00-0.029) 08/12/18 20:34 C-Reactive Protein 5.60 mg/dL (0.00-1.30) H 08/14/18 08:33 NT-Pro-B Natriuret Pep 252.3 pg/mL (0-450) 08/12/18 11:54 Total Protein 7.7 g/dL (6.3-8.2) 08/12/18 11:31 Albumin 4.1 g/dL (3.9-5) 08/12/18 11:31 Albumin/Globulin Ratio 1.1 % 08/12/18 11:31 Triglycerides 65 mg/dL (2-149) 08/12/18 14:24 Cholesterol 141 mg/dL (50-199) 08/12/18 14:24 LDL Cholesterol Direct 88 mg/dL (50-130) 08/12/18 14:24 HDL Cholesterol 56 mg/dL (40-59) 08/12/18 14:24 Cholesterol/HDL Ratio 2.51 % 08/12/18 14:24 Lipase 11 units/L (13-60) L 08/12/18 11:31 TSH 0.159 mlU/mL (0.270-4.200) L 08/12/18 16:23 Free T4 1.07 ng/dL (0.76-1.46) 08/12/18 16:23 Urine Color Yellow (Yellow) 08/13/18 09:07 Urine Turbidity Clear (Clear) 08/13/18 09:07 Urine pH 7.0 (5.0-7.0) 08/13/18 09:07 Ur Specific [place] 1.011 (1.003-1.030) 08/13/18 09:07 Urine Protein <15 mg/dl mg/dL (Negative) 08/13/18 09:07 Urine Glucose (UA) Neg mg/dL (Negative) 08/13/18 09:07 Urine Ketones Neg mg/dL (Negative) 08/13/18 09:07 Urine Blood Neg (Negative) 08/13/18 09:07 Urine Nitrite Neg (Negative) 08/13/18 09:07 Urine Bilirubin Neg (Negative) 08/13/18 09:07 Urine Urobilinogen 4.0 mg/dL (<2.0) 08/13/18 09:07 Ur Leukocyte Esterase Neg (Negative) 08/13/18 09:07 Urine WBC (Auto) 2.0 /HPF (0.0-6.0) 08/13/18 09:07 Urine RBC (Auto) 4.0 /HPF (0.0-6.0) 08/13/18 09:07 U Epithel Cells (Auto) < 1.0 /HPF (0-13.0) 08/13/18 09:07 Urine Bacteria (Auto) 1+ /HPF (Negative) 08/12/18 13:44 Urine Mucus Few /HPF 08/13/18 09:07 Urine Opiates Screen Presumptive negative 08/12/18 13:55 Urine Methadone Screen Presumptive negative 08/12/18 13:55 Ur Barbiturates Screen Presumptive negative 08/12/18 13:55 Ur Phencyclidine Scrn Presumptive negative 08/12/18 13:55 Ur Amphetamines Screen Presumptive negative 08/12/18 13:55 U Benzodiazepines Scrn Presumptive negative 08/12/18 13:55 Urine Cocaine Screen Presumptive negative 08/12/18 13:55 U Marijuana (THC) Screen Presumptive negative 08/12/18 13:55 Drugs of Abuse Note Disclamer 08/12/18 13:55 Rheumatoid Factor 17 IU/ml (0-13) H 08/12/18 16:23 HIV 1&2 Antibody Rapid Non react (Non React) 08/12/18 11:54 HIV P24 Antigen Non react (Non React) 08/12/18 11:54 Active Medications - Current Medications Current Medications: Generic Name Dose Route Start Last Admin Trade Name Freq PRN Reason Stop Dose Admin Acetaminophen 650 mg 08/12/18 14:24 08/14/18 04:02 Tylenol PO 650 mg Q4H PRN Administration Pain MILD(1-3)/Fever >100.5/PEREZ Acetaminophen/Butalbital/Caffeine 1 tab 08/12/18 21:08 08/13/18 21:32 Fioricet PO 1 tab Q4H PRN Administration Headache Albuterol 2.5 mg 08/12/18 14:24 Proventil IH Q4HRT PRN Shortness Of Breath Enoxaparin Sodium 40 mg 08/12/18 22:00 08/13/18 21:16 Lovenox SUB-Q 40 mg QDAY@2200 JONY Administration Sodium Chloride 1,000 mls @ 100 mls/hr 08/13/18 01:00 08/14/18 03:48 Nacl 0.9% 1000 Ml IV 100 mls/hr DIRECT JONY Administration Ceftriaxone Sodium 2 gm in 100 mls @ 200 mls/hr 08/15/18 10:00 Rocephin/Ns 2 Gm/100 Ml IV Q24HR JONY Protocol Ceftriaxone Sodium 1 gm in 50 mls @ 100 mls/hr 08/14/18 16:00 Rocephin/Ns 1 Gm/50 Ml IV 08/14/18 16:29 ONCE ONE Ibuprofen 600 mg 08/14/18 07:56 Motrin PO Q8H PRN Pain, Mild (1-3) Morphine Sulfate 2 mg 08/12/18 14:24 08/13/18 13:10 Morphine IV 2 mg Q4H PRN Administration Pain, Moderate (4-6) Ondansetron HCl 4 mg 08/12/18 14:24 Zofran IV Q8H PRN Nausea And Vomiting Sodium Chloride 10 ml 08/12/18 22:00 08/14/18 10:22 Sodium Chloride Flush Syringe 10 Ml IV 10 ml BID JONY Administration Sodium Chloride 10 ml 08/12/18 14:24 Sodium Chloride Flush Syringe 10 Ml IV PRN PRN LINE FLUSH
[2018-08-14] MEDS: LOVENOX SUB-Q SCH (21:03)
--- NOTE | 2018-08-15 08:22 | Progress Note ---
Assessment and Plan Assessment and plan: 37 YO Male with history of PE not taking anticoagulatio a few years ago now presenting to the ED for evaluation of chest pain and had headaches bilateral retro-orbital pain and bilateral CVA tenderness. Patient was noted to have possible sepsis on admission due to fever etiology was not known temperature was 101.2. Consider his past medical history including noncompliance for pulmonary embolism management recommended for stress test. CT was initially done and was negative. No clinical evidence of meningitis or worse headache of his life on description. Urinalysis showed Some WBC with trace leukoesterase. Patient denies any history of kidney stones. Atypical chest pain likely clinical syndrome of sepsis Sepsis likely secondary to acute cystitis and will rule out pyelonephritis- GNR Migraine headache Low back pain Plan Supportive care AWAITING CT ABDOMEN AND PELVIS BLOOD CULTURE AND URINE CULTURE POSITIVE NOTED Pain control ID consulted. INPUT NOTED Serology oreded to evaluate for autoimmune disease T/L umberspine CT SHOWED NO Continue empiric antibiotics HIV rapid test negative Patient noted to have elevated RH factor. ?Autoimmune disorder, considering hx of PE, will explore further, no clinical skin changes noted. Continue gentle hydration Stress test done and negative. Cardiology input noted DVT/GI prophy Plan discussed with the patient. History Interval history: Patient seen and examined, still complains of headache resolving no nuchal rigidity and no other meningimus signs, Headache he described as 2/10 and does not describe as the worse headache of his life Back pain improving, reports some gum disease. Hospitalist Physical - Constitutional Vitals: Temp Pulse Resp BP Pulse Ox 98.5 F 64 20 121/82 100 08/15/18 04:29 08/15/18 04:29 08/15/18 04:29 08/15/18 04:29 08/15/18 04:29 General appearance: Present: no acute distress Results - Labs CBC & Chem 7: 08/14/18 05:24 08/14/18 05:24 Labs: Laboratory Last Values WBC 3.8 K/mm3 (4.5-11.0) L 08/14/18 05:24 RBC 4.55 M/mm3 (3.65-5.03) 08/14/18 05:24 Hgb 13.7 gm/dl (11.8-15.2) 08/14/18 05:24 Hct 39.4 % (35.5-45.6) 08/14/18 05:24 MCV 87 fl (84-94) 08/14/18 05:24 MCH 30 pg (28-32) 08/14/18 05:24 MCHC 35 % (32-34) H 08/14/18 05:24 RDW 12.5 % (13.2-15.2) L 08/14/18 05:24 Plt Count 138 K/mm3 (140-440) L 08/14/18 05:24 Lymph % (Auto) 6.8 % (13.4-35.0) L 08/12/18 11:31 [place] % (Auto) 7.6 % (0.0-7.3) H 08/12/18 11:31 Eos % (Auto) 0.1 % (0.0-4.3) 08/12/18 11:31 Baso % (Auto) 0.2 % (0.0-1.8) 08/12/18 11:31 Lymph # 0.6 K/mm3 (1.2-5.4) L 08/12/18 11:31 [place] # 0.6 K/mm3 (0.0-0.8) 08/12/18 11:31 Eos # 0.0 K/mm3 (0.0-0.4) 08/12/18 11:31 Baso # 0.0 K/mm3 (0.0-0.1) 08/12/18 11:31 Seg Neutrophils % 85.3 % (40.0-70.0) H 08/12/18 11:31 Seg Neutrophils # 7.1 K/mm3 (1.8-7.7) 08/12/18 11:31 ESR 29 mm/Hr (0-20) 08/14/18 08:33 PT 14.2 Sec. (12.2-14.9) 08/12/18 11:31 INR 1.04 (0.87-1.13) 08/12/18 11:31 APTT 24.2 Sec. (24.2-36.6) 08/12/18 11:31 Sodium 137 mmol/L (137-145) 08/14/18 05:24 Potassium 4.1 mmol/L (3.6-5.0) 08/14/18 05:24 Chloride 102.3 mmol/L (98-107) 08/14/18 05:24 Carbon Dioxide 26 mmol/L (22-30) 08/14/18 05:24 Anion Gap 13 mmol/L 08/14/18 05:24 BUN 10 mg/dL (9-20) 08/14/18 05:24 Creatinine 1.1 mg/dL (0.8-1.5) 08/14/18 05:24 Estimated GFR > 60 ml/min 08/14/18 05:24 BUN/Creatinine Ratio 9 % 08/14/18 05:24 Glucose 111 mg/dL (75-100) H 08/14/18 05:24 POC Glucose 84 (70-105) 08/12/18 11:35 Lactic Acid 1.30 mmol/L (0.7-2.0) 08/12/18 11:31 Calcium 8.2 mg/dL (8.4-10.2) L 08/14/18 05:24 Magnesium 1.80 mg/dL (1.7-2.3) 08/13/18 16:07 Total Bilirubin 1.90 mg/dL (0.1-1.2) H 08/12/18 11:31 AST 18 units/L (5-40) 08/12/18 11:31 ALT 17 units/L (7-56) 08/12/18 11:31 Alkaline Phosphatase 42 units/L (35-129) 08/12/18 11:31 Total Creatine Kinase TNR 08/12/18 11:54 CK-MB (CK-2) < 1.0 ng/mL (0.0-4.0) 08/12/18 11:54 Troponin T < 0.010 ng/mL (0.00-0.029) 08/12/18 20:34 C-Reactive Protein 5.60 mg/dL (0.00-1.30) H 08/14/18 08:33 NT-Pro-B Natriuret Pep 252.3 pg/mL (0-450) 08/12/18 11:54 Total Protein 7.7 g/dL (6.3-8.2) 08/12/18 11:31 Albumin 4.1 g/dL (3.9-5) 08/12/18 11:31 Albumin/Globulin Ratio 1.1 % 08/12/18 11:31 Triglycerides 65 mg/dL (2-149) 08/12/18 14:24 Cholesterol 141 mg/dL (50-199) 08/12/18 14:24 LDL Cholesterol Direct 88 mg/dL (50-130) 08/12/18 14:24 HDL Cholesterol 56 mg/dL (40-59) 08/12/18 14:24 Cholesterol/HDL Ratio 2.51 % 08/12/18 14:24 Lipase 11 units/L (13-60) L 08/12/18 11:31 TSH 0.159 mlU/mL (0.270-4.200) L 08/12/18 16:23 Free T4 1.07 ng/dL (0.76-1.46) 08/12/18 16:23 Urine Color Yellow (Yellow) 08/13/18 09:07 Urine Turbidity Clear (Clear) 08/13/18 09:07 Urine pH 7.0 (5.0-7.0) 08/13/18 09:07 Ur Specific [place] 1.011 (1.003-1.030) 08/13/18 09:07 Urine Protein <15 mg/dl mg/dL (Negative) 08/13/18 09:07 Urine Glucose (UA) Neg mg/dL (Negative) 08/13/18 09:07 Urine Ketones Neg mg/dL (Negative) 08/13/18 09:07 Urine Blood Neg (Negative) 08/13/18 09:07 Urine Nitrite Neg (Negative) 08/13/18 09:07 Urine Bilirubin Neg (Negative) 08/13/18 09:07 Urine Urobilinogen 4.0 mg/dL (<2.0) 08/13/18 09:07 Ur Leukocyte Esterase Neg (Negative) 08/13/18 09:07 Urine WBC (Auto) 2.0 /HPF (0.0-6.0) 08/13/18 09:07 Urine RBC (Auto) 4.0 /HPF (0.0-6.0) 08/13/18 09:07 U Epithel Cells (Auto) < 1.0 /HPF (0-13.0) 08/13/18 09:07 Urine Bacteria (Auto) 1+ /HPF (Negative) 08/12/18 13:44 Urine Mucus Few /HPF 08/13/18 09:07 Urine Opiates Screen Presumptive negative 08/12/18 13:55 Urine Methadone Screen Presumptive negative 08/12/18 13:55 Ur Barbiturates Screen Presumptive negative 08/12/18 13:55 Ur Phencyclidine Scrn Presumptive negative 08/12/18 13:55 Ur Amphetamines Screen Presumptive negative 08/12/18 13:55 U Benzodiazepines Scrn Presumptive negative 08/12/18 13:55 Urine Cocaine Screen Presumptive negative 08/12/18 13:55 U Marijuana (THC) Screen Presumptive negative 08/12/18 13:55 Drugs of Abuse Note Disclamer 08/12/18 13:55 Rheumatoid Factor 17 IU/ml (0-13) H 08/12/18 16:23 HIV 1&2 Antibody Rapid Non react (Non React) 08/12/18 11:54 HIV P24 Antigen Non react (Non React) 08/12/18 11:54 Active Medications - Current Medications Current Medications: Generic Name Dose Route Start Last Admin Trade Name Freq PRN Reason Stop Dose Admin Acetaminophen 650 mg 08/12/18 14:24 08/14/18 04:02 Tylenol PO 650 mg Q4H PRN Administration Pain MILD(1-3)/Fever >100.5/PEREZ Acetaminophen/Butalbital/Caffeine 1 tab 08/12/18 21:08 08/13/18 21:32 Fioricet PO 1 tab Q4H PRN Administration Headache Albuterol 2.5 mg 08/12/18 14:24 Proventil IH Q4HRT PRN Shortness Of Breath Enoxaparin Sodium 40 mg 08/12/18 22:00 08/14/18 21:03 Lovenox SUB-Q 40 mg QDAY@2200 JONY Administration Sodium Chloride 1,000 mls @ 100 mls/hr 08/13/18 01:00 08/14/18 03:48 Nacl 0.9% 1000 Ml IV 100 mls/hr DIRECT JONY Administration Ceftriaxone Sodium 2 gm in 100 mls @ 200 mls/hr 08/15/18 10:00 Rocephin/Ns 2 Gm/100 Ml IV Q24HR JONY Protocol Ibuprofen 600 mg 08/14/18 07:56 Motrin PO Q8H PRN Pain, Mild (1-3) Morphine Sulfate 2 mg 08/12/18 14:24 08/13/18 13:10 Morphine IV 2 mg Q4H PRN Administration Pain, Moderate (4-6) Ondansetron HCl 4 mg 08/12/18 14:24 Zofran IV Q8H PRN Nausea And Vomiting Sodium Chloride 10 ml 08/12/18 22:00 08/14/18 21:03 Sodium Chloride Flush Syringe 10 Ml IV 10 ml BID JONY Administration Sodium Chloride 10 ml 08/12/18 14:24 Sodium Chloride Flush Syringe 10 Ml IV PRN PRN LINE FLUSH
--- NOTE | 2018-08-15 09:39 | Cat Scan Report ---
EXAM: CT ABDOMEN PELVIS W CON HISTORY: GNR bacteremia, UTI. Eval for renal pathology TECHNIQUE: Spiral axial CT images are obtained through the abdomen and pelvis without the administrat ion of oral contrast and menstruation of intravenous contrast. Additional coronal and sagittal reform atted images are reconstructed. DOSIMETRY: Total DLP: 1322.4 mGycm COMPARISON: None available. FINDINGS: GASTROINTESTINAL TRACT: Nonspecific, fluid-filled, nondilated stomach, small bowel loops within the a bdomen and pelvis, and right-sided large bowel loops; possible gastroenteritis with impending diarrhe a. Clinical correlation is advised. There are no stigmata of bowel obstruction, colitis or divertic ulitis. A normal-appearing appendix is seen. GENITOURINARY SYSTEM: The kidneys are unremarkable. There is no ureteral calculus or stigmata of obst ructive uropathy. The urinary bladder is grossly unremarkable for a non-dedicated exam. CT ABDOMEN: Elongation of the right lobe of the liver (up to 18.6 cm CC) in keeping with hepatomegaly versus Cristiano's lobe (anatomical variant). The spleen, pancreas, adrenal glands, gallbladder, aorta, and inferior vena cava are within normal limits for a noncontrast CT scan. A 2.2 cm x 2 cm splenule is noted in the left upper quadrant, abutting the outer margin of the left kidney. There is no intra- abdominal or retroperitoneal lymphadenopathy, free fluid, or free air seen. No abdominal herniation is noted. CT PELVIS: The visualized bony structures are within normal limits. No pelvic sidewall or inguinal l ymphadenopathy is seen. No inguinal herniation is noted. No free fluid or free air is seen. LUNG BASES: The lung bases are clear. IMPRESSION: 1. Nonspecific, fluid-filled, nondilated stomach, small bowel loops within the abdomen and pelvis, a nd right-sided large bowel loops; possible gastroenteritis with impending diarrhea. Clinical correla tion is advised. 2. No evidence for acute appendicitis, bowel obstruction, colitis or diverticulitis seen. 3. No evidence for renal stone disease or obstructive uropathy. 4. No free fluid, free air, mass lesions, or lymphadenopathy seen. This document is electronically signed by Sotero Bunn MD., August 15 2018 09:38:06 AM ET
[2018-08-15] MEDS: ROCEPHIN/NS 2 GM/100 ML 2 GM/100 ML BAG IV SCH (10:00)
[2018-08-15] MEDS: SODIUM CHLORIDE FLUSH SYRINGE 10 ML IV SCH ×2 (10:00→21:22)
[2018-08-15] MEDS: NACL 0.9% 1000 ML 1,000 ML IV SCH (21:21)
[2018-08-15] MEDS: LOVENOX SUB-Q SCH (21:21)
[2018-08-16] MEDS: NACL 0.9% 1000 ML 1,000 ML IV SCH (06:07)
--- NOTE | 2018-08-16 09:36 | Progress Note ---
Assessment and Plan Cultures: 08/12/18 Blood: Proteus mirabilis 08/12/18 Urine GNR , 10-100K CFu ml A/P 37 year old male with a past medical history of Hypertension and Pulmonary embolism not taking anticoagulation, he initially presented to the ED on 08/11/18 with possible sepsis, he returned 08/12/18 with complaints of chest pain for the last 3 days and SOB. Upon further evaluation, patient reported that in 2010 he was treated with shots in his abdomen for one year due to a "vitamin K deficiency" and pulmonary embolism. Patient also acknowledges subjective fever, shaking chills, muscle aches and joint pains. Admitted with: 1. SIRS present on admission: Resolved. Afebrile > 24 hours. Blood cultures grew Proteus, urine culture grew GNR. , Chest Xray showed no consolidation. No leukocytosis, however now leukopenic. HIV nonreactive.. Autoimmune? C/O joint and muscle pain., Rheumatoid factor high at 17. Currently being treated with ceftriaxone. CRP 11.50, ESR 18. 2. Proteus mirabilis Bacteremia: 1 out of 4 bottles. Resistant to Tetracycline, susceptible to Ceftriaxone. 3. UTI: Initial U/A with mild Pyuria, WBC 8.0, trace LE, repeat U/A negative. Urine culture grew GNR. -CT Abdomen - The kidneys are unremarkable. There is no ureteral calculus or stigmata of obstructive uropathy. The urinary bladder is grossly unremarkable for a non-dedicated exam. 4. Autoimmune disorder?: complains of joint pain and muscle pain, RH factor high at 17. DDX RA, Lupus. 5. History of PE: Took Warfarin [id number]. Not currently on anticoagulants. . Plan - continue ceftriaxone dose adjusted to 2gm IV q24 hrs, D4, while inpatient -f/u blood culture -f/u urine cultuer -f/u Lupus anticoagulant profile, FILI titer and Sjogren's antibody -Can discharge home on Ciprofloxacin 500mg PO BID for 6 days ending 08-22-18 -f/u ID clinic in 2 weeks. [facility] M: [phone] O:[phone] Subjective Date of service: 08/16/18 Interval history: Patient seen and examined. Standing up at the sink washing up. Stated that he is feeling better today, ready to be discharged home. Objective - Exam Narrative Exam: Constitutional: Alert, cooperative. No acute distress Head, Ears, Nose: Normocephalic, atraumatic. External ears, nose normal Eyes: Conjunctivae/corneas clear. No icterus. No ptosis. Neck: Supple, no meningeal signs Oral: dentition fair, no thrush Cardiovascular: S1, S2 normal. Respiratory: Good air entry, clear to auscultation bilaterally GI: Soft, non-tender; bowel sounds normal. No peritoneal signs Musculoskeletal: + lower extremity muscle and joint pain, + lower back pain Skin: No rash or abscess Hem/Lymphatic: No palpable cervical or supraclavicular nodes. No lymphangitis Psych: Mood ok. Affect normal Neurological: Awake, alert, oriented. - Constitutional Vitals: Vital Signs Temp Pulse Resp BP Pulse Ox 98.6 F 92 H 20 127/78 99 08/16/18 04:19 08/16/18 00:00 08/16/18 04:19 08/16/18 04:19 08/16/18 00:00 Temperature -Last 24 Hours Temperature 98.6 F Temperature 98.6 F Temperature 98.5 F Temperature 98.6 F Temperature 98.7 F Temperature 98.5 F - Labs CBC & Chem 7: 08/14/18 05:24 08/14/18 05:24
[2018-08-16 10:10] VITALS: BP 137/93
--- NOTE | 2018-08-16 10:57 | Discharge Summary ---
Providers - Providers Date of Admission: 08/12/18 14:24 Attending physician: JUDAH ASHRAF MD 08/12/18 Consult to Cardiac Rehabilitation [CONS] Routine Reason For Exam: Phase I 08/14/18 07:51 Consult to Physician [CONS] Routine Comment: Consulting Provider: LONNIE LIAO Physician Instructions: Reason For Exam: possible sepsis vs automimmune disorder Primary care physician: [employer] Hospitalization Reason for admission: sepsis Condition: Stable Hospital course: 37 YO Male with history of PE not taking anticoagulatio a few years ago now presenting to the ED for evaluation of chest pain and had headaches bilateral retro-orbital pain and bilateral CVA tenderness. Patient was noted to have possible sepsis on admission due to fever etiology was not known temperature was 101.2. Consider his past medical history including noncompliance for pulmonary embolism management recommended for stress test. CT was initially done and was negative. No clinical evidence of meningitis or worse headache of his life on description. Urinalysis showed Some WBC with trace leukoesterase. Patient denies any history of kidney stones. Patient was treated with empiric antibiotic coverage for acute cystitis which turned out to be Escherichia coli. I did advise him Pending workup for autoimmune disease in light of his prior history of unprovoked PE he will follow-up with his primary care physician for review of these records Atypical chest pain likely clinical syndrome of sepsis Sepsis likely secondary to acute cystitis ecoli Migraine headache Low back pain Disposition: TO HOME OR SELFCARE Time spent for discharge: 35 mins Core Measure Documentation - Palliative Care Palliative Care/ Comfort Measures: Not Applicable - Core Measures Any of the following diagnoses?: none Exam - Physical Exam Narrative exam: VITAL SIGNS: Reviewed. GENERAL: The patient appeared well nourished and normally developed, Vital signs as documented. HEAD: No signs of head trauma. No meningismus sign and no nuchal rigidity EYES: Pupils are equal. Extraocular motions intact. EARS: Hearing grossly intact. MOUTH: Oropharynx is normal. NECK: No adenopathy, no JVD. CHEST: Chest with clear breath sounds bilaterally. No wheezes, rales, or rhonchi. CARDIAC: Regular rate and rhythm. S1 and S2, without murmurs, gallops, or rubs. VASCULAR: No Edema. Peripheral pulses normal and equal in all extremities. ABDOMEN: Soft, non tender and non distended. No rebound or guarding, and no masses palpated. Bowel Sounds normal. MUSCULOSKELETAL: Positive bilateral CVA tenderness Good range of motion of all major joints. Extremities without clubbing, cyanosis or edema. NEUROLOGIC EXAM: Alert and oriented x 3 No focal sensory or strength deficits. Speech normal. Follows commands. PSYCHIATRIC: Mood normal. SKIN: No rash or lesions. - Constitutional Vitals: Temp Pulse Resp BP Pulse Ox 98.1 F 81 18 137/93 100 08/16/18 10:08 08/16/18 10:08 08/16/18 10:08 08/16/18 10:08/16/18 10:08 Plan Activity: advance as tolerated, fall precautions Diet: regular Special Instructions: record daily BP diary, smoking cessation Additional Instructions: needs rhumatological work up to be arranged by his primary care doctor Follow up with: PRIMARY CAREMD [Primary Care Provider] - 3-5 Days Prescriptions: Amoxicillin/Potassium Clav [Augmentin 875-125 Tablet] 1 each PO BID #10 tablet Butalb/Acetamin/Caff 50-325-40 [Fioricet] 1 tab PO Q4H PRN #14 tablet PRN Reason: Headache
[2018-08-16] MEDS: SODIUM CHLORIDE FLUSH SYRINGE 10 ML IV SCH (11:44)
[2018-08-16] MEDS: ROCEPHIN/NS 2 GM/100 ML 2 GM/100 ML BAG IV SCH (11:44)
[2018-08-20 11:57] LABS: ANA Screen, IFA Negative (Negative)
== END 2018-08-16 17:19 | disposition home or self-care (01) | DRG 871 ==
LOC: ED 10:35 → 4A 14:24
PROVIDERS: ADMIT Internal Medicine; ATTEND Internal Medicine
DX: A41.51 Sepsis due to Escherichia coli [E. coli] (principal); I50.31 Acute diastolic (congestive) heart failure; N30.00 Acute cystitis without hematuria; I20.8 Other forms of angina pectoris; B96.20 Unspecified Escherichia coli [E. coli] as the cause of diseases classified elsewhere; G43.909 Migraine, unspecified, not intractable, without status migrainosus; M54.5 Low back pain; I11.0 Hypertensive heart disease with heart failure; D89.89 Other specified disorders involving the immune mechanism, not elsewhere classified; D69.6 Thrombocytopenia, unspecified; E83.42 Hypomagnesemia; Z86.711 Personal history of pulmonary embolism; Z82.49 Family history of ischemic heart disease and other diseases of the circulatory system
CPT/HCPCS: 36415; 70450; 71045; 71275; 72128; 72131; 74177; 78452; 80048; 80053; 80061; 80307; 81001; 82140; 82550; 82553; 82962; 83690; 83735; 83880; 84439; 84443; 84484; 85025; 85027; 85610; 85613; 85652; 85730; 86038; 86140; 86235; 86618; 87040; 87076; 87086; 87186; 87806; 93005; 93010; 93017; 96361; 96365; 96367; G0378; A9502; J0696; J1650; J1956; J2270; J2785; J3475; J7030; Q9967